=== PATIENT | female | born 1950 ===

== ENCOUNTER 2016-12-10 09:00 | Inpatient (IN) | payer MEDICARE, OTHER ==
[~2016-12-10] VITALS: Ht 162.6 cm; Wt 90.7 kg
--- NOTE | ~2016-12-10 | OR ---
PATIENT'S NAME: SHERIE CORBETT [facility] AGE: 66 Y [address] ROOM: [place] [id number] LOCATION: [facility] ADMIT DATE: 12/23/2016 OR/Procedure Report DISCHARGE DATE: FAMILY PHYSICIAN: eRbecca Shoemaker MD ATTENDING PHYSICIAN: LORETO JACOBS SURGEON: Loreto Jacobs MD CHUCKING MACHINE SET UP OPERATOR: Steven Hanks CST/STEWARD/[employer]EWARDESS [employer] CLASS and Loreto Marcelo. DATE OF PROCEDURE: 12/23/2016 PRE-OP DIAGNOSIS: Degenerative joint disease right knee. POST-OP DIAGNOSIS: Degenerative joint disease right knee. OPERATION: Right total knee arthroplasty with computer navigation. ANESTHESIA: Spinal anesthesia plus adductor canal block plus periarticular local anesthesia (ropivacaine with epinephrine). ESTIMATED BLOOD LOSS: Less than 10 mL. DRAIN: None. SPECIMEN: None. COMPLICATIONS: None. IMPLANT SYSTEM: Shiela Triathlon. Size 4 right posterior stabilized femoral component. Size 3 [place] Modular tibial baseplate. 13 mm posterior stabilized size 3, X3 tibial polyethylene insert. 29 mm Oval X3 patellar component (triple pegged). INDICATIONS FOR SURGERY: Sherie Corbett is a 66-year-old female who presents with advanced right knee degenerative joint disease and associated severely compromised activities of daily living. The patient has decided to proceed with knee replacement after having been thoroughly counseled regarding the associated risks, benefits, and limitations. We have specifically reviewed the risks and implications of infection, deep venous thrombosis, pulmonary embolism, mortality, neurovascular complications, blood transfusion (and associated potential for disease transmission or transfusion reaction), stiffness, instability, mechanical deterioration of the components (due to wear and or loosening), and the potential need for revision. We have also emphasized the importance of active involvement and compliance with post- operative physical therapy as a means of optimizing range of motion and PATIENT'S NAME: SHERIE CORBETT [facility] AGE: 66 Y [address] ROOM: [place] [address] LOCATION: [facility] ADMIT DATE: 12/23/2016 OR/Procedure Report DISCHARGE DATE: FAMILY PHYSICIAN: Rebecca Shoemaker MD ATTENDING PHYSICIAN: LORETO JACOBS functional recovery. Informed consent has been granted. DESCRIPTION OF PROCEDURE: The patient was positioned supine after administration of anesthesia and prophylactic antibiotics. A well-padded pneumatic tourniquet was placed around the right proximal thigh, and the right lower extremity was prepped and draped with vigilant sterile technique. The patient's name as well as the intended operative side and procedure were confirmed with a verbal time-out involving myself, the circulating nurse, the scrub nurse, and the anesthesiologist. Examination under anesthesia demonstrated a mild effusion. There were no active skin lesions or masses. There was no erythema. There was no abnormal warmth. Range of motion under anesthesia was from a 5-degree flexion contracture to 130 degrees of flexion. There was no ligamentous insufficiency. The right lower extremity was elevated and exsanguinated with an Esmarch wrap, and the pneumatic tourniquet was inflated to 300mmHg. The knee was approached through a longitudinal midline incision. A medial parapatellar arthrotomy was performed and the patella was everted. Examination of the joint space demonstrated a moderate amount of benign-appearing translucent synovial fluid. There were no loose bodies. There was no synovitis. The cruciate ligaments were intact. There was complex degenerative tearing at the posterior half of the medial meniscus. There was mild inner perimeter tearing at the anterior half of the medial meniscus. There was a horizontal cleavage tear involving the posterior two-thirds of the lateral meniscus. There was a 1 cm diameter region of full-thickness articular cartilage loss at the medial aspect of the lateral femoral condyle. There was a 2 cm diameter region of full-thickness articular cartilage loss at the posterolateral half of the lateral tibial plateau. There was depression of the lateral half of the lateral tibial plateau. (consistent with the lateral tibial plateau fracture noted on preoperative radiographs). There were moderate grade 3 degenerative changes throughout the inferior two-thirds of the patella and high-grade partial thickness articular cartilage loss across the equator of the patella. There was a 2 mm region of full-thickness articular cartilage loss at the medial facet of the patella. There were intermixed grade 3 and grade 4 degenerative changes throughout the medial femoral condyle. There was high-grade partial thickness articular cartilage loss throughout the anterior two-thirds of the medial tibial plateau. There was a small osteophyte at the medial tibial plateau. Remnants of the menisci and cruciate ligaments were excised. The [employer] navigation femoral tracker was pinned in place at the distal aspect of the femoral trochlea. Absence of motion between the femur and the tracking PATIENT'S NAME: BROWN, SHERIE L [facility] AGE: 66 Y [address] ROOM: [address] [address] LOCATION: [facility] ADMIT DATE: 12/23/2016 OR/Procedure Report DISCHARGE DATE: FAMILY PHYSICIAN: Rebecca Shoemaker MD ATTENDING PHYSICIAN: LORETO JACOBS device was confirmed manually and visually. Femoral osseous landmarks were obtained in order to calibrate the computer navigation system. Landmarks included the center of rotation of the ipsilateral hip, the center-point of the distal femur, the femoral AP axis, 57 points on the medial femoral condyle articular surface, and 57 points on the lateral femoral condyle articular surface. The [employer] computer navigation system was subsequently utilized to position the distal femoral resection block such that the distal femoral resection was performed perfectly perpendicular to the femoral mechanical axis. The distal femoral resection was performed with a Arkeo oscillating saw. The [employer] computer navigation tibial tracker was pinned in place at the anterior aspect of the tibial plateau. Absence of motion between the tibia and the tracking device was confirmed manually and visually. Tibial osseous landmarks were obtained in order to calibrate the computer navigation system. Landmarks included the center-point of the tibial plateau, the AP tibial axis, 57 points on the medial tibial plateau articular surface, 57 points on the lateral tibial plateau articular surface, the medial malleolus, and the lateral malleolus. The [employer] computer navigation system was subsequently utilized to position the proximal tibial resection block such that the proximal tibial resection was performed perfectly perpendicular to the tibial mechanical axis. The proximal tibial resection was performed with a GridPoint Precision oscillating saw. Perpendicularity of the tibial resection with respect to the tibial shaft axis was reconfirmed by inserting a spacer- block attached to an extramedullary guide juni. External rotation of the anterior and posterior femoral resections was set parallel to the epicondylar axis and carefully adjusted in order to create a rectangular flexion gap. The box resection was performed with a reciprocating saw. Anterior and posterior chamfer resections were performed with the oscillating saw. Posterior condyle osteophytes were excised with an osteotome. All other osteophytes were excised with a rongeur. Resection of all remnants of the menisci was reconfirmed. Flexion and extension gaps were confirmed to be symmetric and well balanced with a spacer-block technique. The patella resection was performed with an oscillating saw such that the composite thickness of the reconstructed patella was equivalent to the thickness of the [place] patella. Patella tracking was optimal, and there was no need for a lateral retinacular release. All trial components were removed and all prepared osseous surfaces were thoroughly irrigated with pulsatile saline lavage and dried prior to cementing all three components in a single stage using Shiela Simplex cement containing pre-mixed tobramycin. All extruded excess cement was removed. The entire joint space was thoroughly inspected and thoroughly irrigated with PATIENT'S NAME: SHERIE CORBETT [facility] AGE: 66 Y [address] ROOM: [address] [address] LOCATION: [facility] ADMIT DATE: 12/23/2016 OR/Procedure Report DISCHARGE DATE: FAMILY PHYSICIAN: Rebecca Shoemaker MD ATTENDING PHYSICIAN: LORETO JACOBS bacteriostatic pulsatile saline lavage to assure that there was no residual debris of any sort. Final range of motion was from full extension (with no passive hyperextension) to 130 degrees of flexion. Patella tracking was reconfirmed to be optimal. There was excellent anteroposterior stability at 90 degrees of flexion. There was less than 1 mm of medial lift-off to valgus stress in full extension. There was less than 1 mm of lateral lift-off to varus stress in full extension. The arthrotomy was closed with multiple simple and [id number] interrupted #1 Vicryl. Subcutaneous tissues were thoroughly re-irrigated with bacteriostatic pulsatile saline lavage. Subcutaneous tissues were re- approximated with simple buried interrupted #0 Vicryl sutures. The skin was closed with simple buried interrupted 2-0 Vicryl sutures followed by surgical susan. The dressing consisted of Xeroform gauze, 4x4 gauze, ABD pads and two 6-inch Barney Wraps. There were no intra-operative complications. MD LINDA MONTALVO/marquita /[id number] d: 12/24/16 0935 t: 12/29/16 0103, OPERATIVE SUMMARY
--- NOTE | ~2016-12-10 | DS ---
PATIENT'S NAME: KULWANT CORRALES [facility] AGE: 66 Y [address] ROOM: [place] [address] LOCATION: [facility] ADMIT DATE: 12/23/2016 Discharge Summary DISCHARGE DATE: 12/25/2016 FAMILY PHYSICIAN: Rebecca Shoemaker MD ATTENDING PHYSICIAN: Chris Tran PRIMARY DIAGNOSIS: Degenerative joint disease of the right knee. SECONDARY DIAGNOSES: 1. Diabetes mellitus type 2. 2. Hypertension. 3. Hyperthyroidism. 4. Obesity. 5. Coronary artery disease. 6. Mixed hyperlipidemia. 7. Gastroesophageal reflux disease. PROCEDURE PERFORMED: Right total knee arthroplasty. HISTORY: The patient is a 66-year-old female, who presents with advanced right knee degenerative joint disease and associated severely compromised activities of daily living. The patient has decided to proceed with total knee arthroplasty after having been thoroughly counseled regarding the risks, benefits, limitations, and alternatives. Please refer to the outpatient clinic notes and admission history and physical for this patient. HOSPITAL COURSE: The patient underwent a right total knee arthroplasty on 12/23/2016 without complications. Spinal anesthesia plus adductor canal block plus periarticular local anesthesia was utilized. The patient received 24 hours of perioperative prophylactic antibiotics and remained hemodynamically stable, neurovascularly intact throughout the entire hospital course. The postoperative prophylactic deep venous thrombosis prophylaxis consisted of Xarelto, early mobilization and pneumatic compression devices. Daily physical therapy for gait training, transfer training, range of motion and quadriceps isometric exercises were received. The patient progressed well in physical therapy. On the date of discharge, 12/25/2016, the incision at the knee was healing well and showed no signs of infection. DISPOSITION: Home. DISCHARGE ACTIVITY: The patient is to bear weight as tolerated with range of motion and quadriceps isometric exercises as instructed. The operative extremity is to be elevated at least 90% of the day. There is to be sterile 4x4 gauze dressings to the incision daily. Dr. Tran is to be notified immediately if there is any increased pain, fevers, chills, erythema, or PATIENT'S NAME: KULWANT CORRALES [facility] AGE: 66 Y [address] ROOM: [place] [address] LOCATION: [facility] ADMIT DATE: 12/23/2016 Discharge Summary DISCHARGE DATE: 12/25/2016 FAMILY PHYSICIAN: Rebecca Shoemaker MD ATTENDING PHYSICIAN: Chris Tran. DISCHARGE MEDICATIONS: 1. Xarelto 10 mg 1 tablet p.o. daily for 12 days for postoperative DVT prophylaxis. 2. Hydromorphone 2 mg 1 to 2 tablets p.o. every 4 hours p.r.n. for pain. 3. Celebrex 200 mg 1 tablet p.o. b.i.d. for 7 days for pain. 4. She is to hold her Enbrel for 2 weeks postoperatively. 5. She is to hold her methotrexate for 2 weeks postoperatively. She was then instructed to continue all her other pre-admission medications as instructed by her Internal Medicine doctor. FOLLOWUP: Followup appointment is to be with Dr. Tran's office on 12/30/2016 for her initial postoperative evaluation with x-rays of her right knee at that time. MARTINA CASANOVA PA-C FOR MD BAKARI MONTALVO/marquita /[id number] d: 12/31/16 0329 t: 01/01/17 1344, DISCHARGE SUMMARY
[~2016-12-10 09:00] MED LIST: ASPIRIN EC81 MG PO; CALCIUM600 MG PO; CRESTOR10 MG PO; ENBREL50 MG/1 ML SUB-Q; FOLIC ACID0.8 MG PO; GLUCOPHAGE1000 MG PO; LEVOTHROID(SYN75 MCG PO; METHOTREXATE (2.5 MG PO; TOPROL XL25 MG PO; ULTRAM50 MG PO; VITAMIN D1000 UNIT PO
--- NOTE | 2016-12-23 15:05 | NUR ---
Introduced self/role to patient and spouse. Eugenia attended the preop class on 12/12/16. Reports she has cane, crutches, bath seat, hand held shower head, long shoe horn. Did not use AD prior to surgery. Has foot pumps in place bilat. Reviewed and encouraged use of IS. Will follow and assist as needs identified.
--- NOTE | 2016-12-23 19:23 | NUR ---
Significant Event: Pt VSS, on q4H vitals, Spinal and adductor canal, Pt has voided x2, once Inc lrg amount, then in BSC, transfers 1 assist, Drsg CL/D/I, Minimal pain, last dilaudid at 1530, scheduled tylenol at 1800, Pt BS was 234 & recieved 2 units of Insulin & Metformin, Ancef at 1600. Follow up: Pain
--- NOTE | 2016-12-24 04:19 | NUR ---
Patient alert and oriented x3, very pleasant and cooperative, csm with in normal limits, dressing clean dry intact, one assist with walker and gaitbelt, ice in place to knee, pain has been undercontrol tonight had one dose of toradol and oral diluadid
--- NOTE | 2016-12-24 09:19 | NUR ---
Introduced self/role to patient. Lives here in [place] with her spouse Addy. He has had various health issues so have all the DME she feels she will need. Denied and barriers to go home or at home. She plans to discharge tomorrow. Added my name to her marker board.
--- NOTE | 2016-12-24 17:31 | NUR ---
Patient alert and oriented. CSM within normal limits. Up with 1A with walker. Dilaudid given 4 times today with last time at 1400. Had 1 BM today. Has been in chair most of the shift.
--- NOTE | 2016-12-24 19:28 | NUR ---
I was preceptor for Ijeoma Raya student nurse this shift and agree with her charting
--- NOTE | 2016-12-25 04:01 | NUR ---
Patient alert and oriented x3, very pleasant and cooperative, did have pain issues at begining of shift but has been undercontrol the rest of the shift and has rested well, had tylenol and diluadid at 0400, csm with in normal limits, dressing is clean dry and intact, ambulates well stand by assist with walker and gaitbelt, plans to go home today
[2016-12-25] MEDS ORDERED: TYLENOL EXTRA500 MG PO (13:25)
[2016-12-25] MEDS ORDERED: COLACE100 MG PO (13:27)
[2016-12-25] MEDS ORDERED: MIRALAX17 GM PO (13:29)
[2016-12-25] MEDS ORDERED: XARELTO10 MG PO (13:32)
[2016-12-25] MEDS ORDERED: CELEBREX100 MG PO (13:32)
[2016-12-25] MEDS ORDERED: DILAUDID 2MG(HYD2 MG PO (13:34)
--- NOTE | 2016-12-25 15:01 | NUR ---
Patient has been up with SBA and walker. Wound is intact with no redness or drainage. Pain is well relieved with Dilaudid with last given at 1410. Discharge instructions given to patient and . CSM have been within normal limits. Last bowel movement 12/25/16. Discharged to front door with all belongings and ice packs. Patient and verbalized understanding of all discharge instructions.
--- NOTE | 2016-12-25 15:08 | NUR ---
I was preceptor this shift for student nurse Rosibel Raya and I agree with her charting.
== END 2016-12-25 14:30 | disposition disaster alternative care site (69) | DRG 470 ==
LOC: G3N 12-23 05:06
PROVIDERS: ADMIT Orthopaedic Surgery
PROC: 0SRC0J9 Replacement of Right Knee Joint with Synthetic Substitute, Cemented, Open Approach (ICD-10-PCS; principal; 2016-12-24)
DX: M17.11 Unilateral primary osteoarthritis, right knee (principal); I10 Essential (primary) hypertension; E11.9 Type 2 diabetes mellitus without complications; E03.9 Hypothyroidism, unspecified; E66.9 Obesity, unspecified; I25.10 Atherosclerotic heart disease of native coronary artery without angina pectoris; E78.2 Mixed hyperlipidemia; K21.9 Gastro-esophageal reflux disease without esophagitis; Z66 Do not resuscitate; M81.0 Age-related osteoporosis without current pathological fracture; Z68.34 Body mass index [BMI] 34.0-34.9, adult; Z95.5 Presence of coronary angioplasty implant and graft
CPT/HCPCS: C1713; C1776; J0690; J1100; J1885; J2001; J2250; J2795; J7030

== ENCOUNTER → 2016-12-12 | Outpatient (CLI) | payer MEDICARE, OTHER ==
[~2016-12-12] MED LIST changes: +CELEBREX100 MG PO; +COLACE100 MG PO; +DILAUDID 2MG(HYD2 MG PO; +MIRALAX17 GM PO; +TYLENOL EXTRA500 MG PO; +XARELTO10 MG PO
== END | disposition disaster alternative care site (69) ==
LOC: LFPA 08:31
DX: M17.11 Unilateral primary osteoarthritis, right knee (principal); R82.90 Unspecified abnormal findings in urine

== ENCOUNTER → 2016-12-12 | Outpatient (CLI) | payer MEDICARE, OTHER | END | disposition disaster alternative care site (69) | LOC: GNJRC 10:29 | DX: Z01.812 Encounter for preprocedural laboratory examination (principal); M17.11 Unilateral primary osteoarthritis, right knee ==

== ENCOUNTER → 2017-01-27 | Outpatient (CLI) | payer MEDICARE, OTHER | END | disposition disaster alternative care site (69) | LOC: GRAD 11:39 | DX: R79.89 Other specified abnormal findings of blood chemistry (principal); N13.30 Unspecified hydronephrosis | CPT/HCPCS: Q9967 ==

== ENCOUNTER → 2017-02-11 | Outpatient (CLI) | payer MEDICARE, OTHER ==
--- NOTE | ~2017-02-11 | ESTC ---
Cardiac Perfusion Imaging Demographics Patient Name SAVANNA Ordaz Gender Female Patient Number [id number] Race Visit Number [id number] Ethnicity Corporate ID Room Number Accession Number [id number] Height Date of 1950 Weight Age 66 year(s) BSA Referring Physician Taryn Jean MD BMI Sahara Amaral MD Interpreting Taryn Jean MD Date of study 02/11/2017 Physician Supervising /JONATHAN Vasquez NM Technologist Jes Hinojosa APRN Ordering Physician Taryn Jean MD Stress vehicle monitor technician Stress ECG Reading Seun Vasquez Nurse Hung Kaur Physician SALEEM RN Aneudy Amaral RN Procedure Procedure Type: Nuclear Stress Test:Pharmacological, Lexiscan, Cardiolite Stress Test Procedure Start time: 02/11/2017 08:04 Indications: History of CAD and Shortness of breath. Risk Factors The patient risk factors include:prior PCI;obesity, treated hypercholesterolemia, treated hypertension and dyslipidemia. Conclusions Summary Cardiolite SPECT images demonstrate homogenous uptake of radioactive tracer. There is no inducible reversible defect and no evidence of underlying fixed defect. Normal TID ratio at 0.89 Gated images demonstrate normal left ventricular systolic function. LVEF is 88% Stress Protocols Resting ECG RSR with T wave inversion Lead II, III Resting HR:83 bpm Resting BP:135/90 mmHg Pre-stress physical exam: Alert, lungs clear, CV regular . Stress Protocol:Pharmacologic Peak HR:110 bpm HR response: Appropriate Peak BP:161/86 mmHg BP response: Appropriate Predicted HR: 154 bpm HR/BP product:29616 % of predicted HR: 71 Reason for termination:Infusion complete ECG Findings No ECG changes suggestive of ischemia. Arrhythmias No rhythm abnormality. Symptoms Shortness of breath. Nausea. Stress Interpretation Appropriate hemodynamic response to Lexiscan. No significant ST-T wave changes with Lexiscan. ECG portion is negative for ischemia by diagnostic criteria. Stress supervision and interpretation provided by Shavonne Kohli APRN . Imaging Results Summed scores - Summed stress score: 7 - Summed rest score: 0 - Summed difference score: 7 Stress ejection Ejection fraction:87 % EDV :45 ml ESV :6 ml Stroke volume :39 ml LV mass :83 gr Imaging Protocols Rest Stress Isotope:Tc99m Sestamibi IV Isotope: Tc99m Sestamibi IV Isotope dose:12.6 mCi Isotope dose:41.1 mCi Date:02/11/2017 07:00 Date:02/11/2017 08:47 Technique: SPECT Technique: Gated Supine SPECT Supine Scan Time:45-60 minutes post Scan Time:45-60 minutes post injection injection Procedure Medications - Regadenoson (Lexiscan) 0.4 mg IV over 10-15 sec. I.V. 0.4 mg. Medical History Admission Data Admission date: 02/11/2017 Admission Time: 06:37 Hospital Status: Outpatient. Signatures dtt: Ted Centeno (cardio) dtd: 02/11/17803 Physician Self Edit
== END | disposition disaster alternative care site (69) ==
LOC: GRAD 06:37
DX: I25.10 Atherosclerotic heart disease of native coronary artery without angina pectoris (principal); E66.9 Obesity, unspecified; E78.00 Pure hypercholesterolemia, unspecified; I10 Essential (primary) hypertension; E78.5 Hyperlipidemia, unspecified; R06.02 Shortness of breath
CPT/HCPCS: A9500; J2785

== ENCOUNTER → 2017-02-24 | Outpatient (CLI) | payer MEDICARE, OTHER ==
[2017-02-24 16:08] LABS: ALBUMIN 3.3 gm/dL (3.5-5.0); ANION GAP 9.6 (10.0-19.0); CALCIUM 8.7 mg/dL (8.5-10.5); CREATININE 0.9 mg/dL (0.5-1.1); PHOSPHORUS 3.3 mg/dL (2.5-4.9); POTASSIUM 3.6 mMol/L (3.7-5.1)
== END ==
LOC: LCNC 15:41
PROVIDERS: Internal Medicine Interventional Cardiology
DX: I25.10 Atherosclerotic heart disease of native coronary artery without angina pectoris (principal)